=== PATIENT | male | born 1980 | race Caucasian/White ===

== ENCOUNTER → 2018-05-09 | Outpatient (CLI) | payer OTHER ==
[~2018-05-09] MED LIST: CETI-176 PO; FLU60SYR36 IM; FLUT16SP19 NS; MELO-207 PO; MONT10TA PO
[2018-05-09 08:21] LABS: PLATELET COUNT, AUTOMATED 274 K/uL (150-450)
--- NOTE | 2018-05-09 09:16 | RADIOLOGY IMAGING REPORT ---
FACILITY: [facility] PATIENT NAME: Kavon Bernard : 1980 MR: [id number] V: [id number] EXAM DATE: ORDERING PHYSICIAN: KULDIP LAWSON TECHNOLOGIST: [facility] Patient: Kavon Bernard : 1980 Visit/Account:[id number] Date of Sevice: 05/09/2018 Technique: LUMBAR SPINE 2 OR 3 VIEW HISTORY: back pain Comparison studies: None FINDINGS: There is no acute fracture. 5 nonrib-bearing lumbar type vertebral bodies are present. No stefania is endplate osteophytosis. The vertebral body heights are maintained although there is slight we dging of the vertebral bodies at the thoracolumbar junction; likely secondary to degenerative and rot ational positioning. Soft tissues are unremarkable. IMPRESSION: 1. Mild degenerative changes as described above. Report Dictated By: Kota Gracia DO at 05/09/2018 9:10 AM Report E-Signed By: Kota Gracia DO at 05/09/2018 9:12 AM WSN:[id number]
[2018-05-09 09:28] LABS: LDL CHOLESTEROL 92 mg/dl
== END ==
LOC: RAD 08:02
PROVIDERS: ATTEND Internal Medicine
DX: Z00.00 Encounter for general adult medical examination without abnormal findings (principal); M54.5 Low back pain
CPT/HCPCS: 36415; 72100; 81001; 82040; 82247; 82310; 82374; 82435; 82465; 82565; 82947; 83718; 84075; 84132; 84155; 84295; 84443; 84450; 84460; 84478; 84520; 85025

== ENCOUNTER → 2018-07-30 | Outpatient (CLI) | payer OTHER ==
[~2018-07-30] MED LIST changes: +AMOX-559 PO; +CETI10CA8 PO; +GARL1TAB9 PO
== END ==
LOC: LAB 09:21
PROVIDERS: ATTEND Otolaryngology
DX: J30.9 Allergic rhinitis, unspecified (principal)
CPT/HCPCS: 36415; 86003